=== PATIENT | female | born 1990 | race Caucasian/White ===

== ENCOUNTER 2019-09-30 22:20 | Day surgery (SDC) | payer MEDICAID, SELFPAY ==
[~2019-09-30] VITALS: Ht 160 cm; Wt 65.9 kg
[2019-09-30] MEDS ORDERED: NS 1,000 ML IV SCH (22:48)
[2019-09-30] MEDS ORDERED: VENTAER INH (22:53)
[2019-09-30] MEDS ORDERED: MORPHINE 4 MG/ML 1ML VIAL/SYRINGE (J2270) IV ONE (23:15)
[2019-10-01] MEDS ORDERED: propofoL 200 MG/20 ML VIAL As Ordered ONE (00:38)
[2019-10-01] MEDS ORDERED: LIDOCAINE 2% 100MG/5ML SDV (FOR ANES.) As Ordered ONE (00:39)
[2019-10-01] MEDS ORDERED: MIDAZOLAM INJ 2MG/2ML VIAL (J2250 PER 1MG) As Ordered ONE (00:42)
[2019-10-01] MEDS ORDERED: fentaNYL 100 MCG/2 ML INJECTION (J3010) As Ordered ONE (00:42)
[2019-10-01] MEDS ORDERED: ONDANSETRON 4MG/2ML VIAL As Ordered ONE (02:07)
[2019-10-01] MEDS ORDERED: METOCLOPRAMIDE INJ 10MG/2ML VIAL (J2765 PER 1) IV PRN (02:30)
[2019-10-01] MEDS ORDERED: fentaNYL 100 MCG/2 ML INJECTION (J3010) IV PRN (02:30)
[2019-10-01] MEDS ORDERED: LR 1,000 ML IV SCH ×2 (02:30→02:45)
[2019-10-01] MEDS ORDERED: PERCOCET 5MG/325MG TAB PO PRN ×3 (02:30→02:45)
[2019-10-01] MEDS ORDERED: ONDANSETRON 4MG/2ML VIAL IV PRN (02:30)
[2019-10-01] MEDS ORDERED: MORPHINE 2 MG/ML 1ML VIAL (J2270) IV PRN (02:45)
[2019-10-01] MEDS ORDERED: BACTRIM 160MG/800MG DS TAB PO SCH (03:00)
[2019-10-01 03:14] VITALS: BP 125/73
[2019-10-01] MEDS ORDERED: BACT800T5 PO (06:07)
[2019-10-01] MEDS ORDERED: METAMUCIL (PSYLLIUM) PACKET PO SCH (09:00)
[2019-10-01] MEDS ORDERED: PROMETHAZINE INJ 25 MG/ML VIAL (J2550) IV PRN (09:00)
--- NOTE | 2019-10-01 12:52 | REP ---
REASON: Status post closed reduction of distal tibial and fibular fractures. 26 seconds of fluoroscopy time was provide Dr. Charlie Bustillos for the procedure. Overlying casting material obscures the bony detail. The alignment is near anatomical. Electronically Signed by Robbin Reaves DO 10/01/2019 03:17 P
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
== END 2019-10-01 04:05 | disposition home or self-care (01) ==
LOC: M ED 22:20 → M SDC 22:21 → ENRESERV 23:48 → M MS5PR 10-01 03:11 → M SDC 10-01 04:05
PROVIDERS: ATTEND Orthopaedic Surgery
DX: S82.202A Unspecified fracture of shaft of left tibia, initial encounter for closed fracture (principal); V86.16XA Passenger of dirt bike or motor/cross bike injured in traffic accident, initial encounter; Y92.89 Other specified places as the place of occurrence of the external cause; Y93.55 Activity, bike riding; Y99.9 Unspecified external cause status; J45.909 Unspecified asthma, uncomplicated; Z79.51 Long term (current) use of inhaled steroids; Z88.0 Allergy status to penicillin; Z88.8 Allergy status to other drugs, medicaments and biological substances; Z91.040 Latex allergy status; F17.218 Nicotine dependence, cigarettes, with other nicotine-induced disorders
CPT/HCPCS: 27810; 76000; 87486; 87581; 87633; 87798; 96361; 96374; 99284; J2250; J2270; J2405; J3010